=== PATIENT | female | born 1950 | race Caucasian/White ===

== ENCOUNTER 2017-07-29 17:14 | Inpatient (IN) | payer MEDICARE ==
[2017-07-29] MEDS ORDERED: SODIUM CHLORIDE 0.9% 1,000 ML IV STA (17:25)
--- NOTE | 2017-07-29 17:30 | ED ---
Fall HPI - General Chief Complaint: Fall Stated Complaint: fall, hip pain Time Seen by Provider: 07/29/17 17:16 Source: patient, EMS, RN notes reviewed, old records reviewed Mode of arrival: EMS - History of Present Illness Initial Comments: 67-year-old female presents to the emergency department today chief complaint of left hip pain after a fall. She fell on her face and while bending over to pick something up. Patient reports that she is unable to extend her left leg. She denies any other injury related to the fall. No head or neck injury. Patient states that she did previously break her right humerus last year and had surgery. She cannot remember the orthopedic at this time. Has a history of CVA, with some residual weakness, liver disease. Patient has history of hypertension and high cholesterol. - Related Data Home Medications Medication Instructions Recorded Confirmed Atorvastatin [Lipitor] 10 mg PO HS 11/19/14 11/22/14 Fish Oil/Dha/Epa [Fish Oil 1,200 1 each PO DAILY 11/19/14 11/22/14 mg Fish Oil] HYDROcodone/APAP 7.5-325MG [[place] 1 each PO Q6HR PRN 11/19/14 11/22/14 7.5-325] Lisinopril [Prinivil] 20 mg PO BID 11/19/14 11/22/14 Multivitamins, Thera [Multivitamin] 1 tab PO DAILY 11/19/14 11/22/14 Pantoprazole Sodium [Protonix] 40 mg PO DAILY 11/19/14 11/22/14 Potassium Chloride [Klor-Con 10] 10 meq PO DAILY 11/19/14 11/22/14 cloNIDine HCL [Catapres] 0.1 mg PO HS 11/19/14 11/22/14 Allergies Allergy/AdvReac Type Severity Reaction Status Date / Time No Known Allergies Allergy Verified 11/22/14 07:08 Review of Systems ROS Statement: Those systems with pertinent positive or pertinent negative responses have been documented in the HPI. ROS Other: All systems not noted in ROS Statement are negative. Past Medical History Past Medical History: CVA/TIA, Liver Disease History of Any Multi-Drug Resistant Organisms: None Reported Additional Past Surgical History / Comment(s): COLONOSCOPY, EGD Past Anesthesia/Blood Transfusion Reactions: No Reported Reaction Past Psychological History: No Psychological Hx Reported Smoking Status: Current every day smoker Past Alcohol Use History: Occasional Past Drug Use History: None Reported - Past Family History Mother Family Medical History: No Reported History General Exam - General Exam Comments Initial Comments: 67-year-old female, appears in acute pain. She is a frail-appearing 67-year- old female. Limitations: no limitations General appearance: alert, in no apparent distress Head exam: Present: atraumatic, normocephalic, normal inspection Eye exam: Present: normal appearance, PERRL, EOMI. Absent: scleral icterus, conjunctival injection, periorbital swelling ENT exam: Present: normal exam, mucous membranes moist Neck exam: Present: normal inspection. Absent: tenderness, meningismus, lymphadenopathy Respiratory exam: Present: normal lung sounds bilaterally. Absent: respiratory distress, wheezes, rales, rhonchi, stridor Cardiovascular Exam: Present: regular rate, normal rhythm, normal heart sounds. Absent: systolic murmur, diastolic murmur, rubs, gallop, clicks Extremities exam: Present: full ROM, normal capillary refill. Absent: normal inspection, tenderness, pedal edema, joint swelling, calf tenderness Left Hip exam: Present: tenderness. Absent: normal inspection (Patient is holding her leg in a flexed position. She is not able to extend her leg. She reports pain over the left hip and upper thigh.), full ROM, swelling, abrasion Knee exam: Present: normal inspection, full ROM Ankle exam: Present: normal inspection, full ROM Foot/Toe exam: Present: normal inspection, full ROM Neurovascular tendon exam: Present: no vascular compromise Back exam: Present: normal inspection Neurological exam: Present: alert, oriented X3, CN II-XII intact Psychiatric exam: Present: normal affect, normal mood Skin exam: Present: warm, dry, intact, normal color. Absent: rash Course Vital Signs 07/29/17 17:16 Temperature 98.9 F Pulse Rate 84 Respiratory 20 Rate Blood Pressure 166/75 O2 Sat by Pulse 99 Oximetry - Reevaluation(s) Reevaluation #1: 07/29/17 18:05 Discussed case with RASHMI Veloz for Dr. Chen. Medical Decision Making - Medical Decision Making 67-year-old female with a history of hypertension and previous CVA presents after a fall. Has a left hip fracture. No other injuries related to her fall. She is neurovascularly intact, patient is holding her leg in a flex position. Discussed case with RASHMI Veloz whom accepts admission for . I discussed case with Dr. Mitchell for surgery clearance in the morning. Patient's family informed of all the results. Patient will be admitted at this time. Patient will be nothing by mouth after midnight. - Lab Data Result diagrams: 07/29/17 17:41 Lab Results 07/29/17 Range/Units 17:41 WBC 11.9 H (3.8-10.6) k/uL RBC 4.35 (3.80-5.40) m/uL Hgb 12.6 (11.4-16.0) gm/dL Hct 39.2 (34.0-46.0) % MCV 90.1 (80.0-100.0) fL MCH 29.0 (25.0-35.0) pg MCHC 32.2 (31.0-37.0) g/dL RDW 13.7 (11.5-15.5) % Plt Count 271 (150-450) k/uL Neutrophils % 74 % Lymphocytes % 19 % Monocytes % 5 % Eosinophils % 1 % Basophils % 0 % Neutrophils # 8.8 H (1.3-7.7) k/uL Lymphocytes # 2.2 (1.0-4.8) k/uL Monocytes # 0.5 (0-1.0) k/uL Eosinophils # 0.1 (0-0.7) k/uL Basophils # 0.0 (0-0.2) k/uL 07/29/17 18:37 EKG performed at 1824 shows sinus rhythm, low voltage QRS. Borderline EKG. Ventricular rate 93 bpm. NM interval is 168. QRS duration is 58 ms. QT QTc is 386/479 ms. No evidence of ST elevation or T-wave inversion. - Radiology Data Radiology results: report reviewed Acute comminuted enterococcus trochanteric fracture of the left femur. Chest x- ray is negative for any acute cardiopulmonary disease. Normal heart. No significant change. Disposition Clinical Impression: Closed left hip fracture Disposition: ADMITTED IP TO THIS HOSP Condition: Good Is patient prescribed a controlled substance at d/c from ED?: No Referrals: Tony Whitten DO [Primary Care Provider] - 1-2 days Time of Disposition: 18:41
[2017-07-29] MEDS: SODIUM CHLORIDE 0.9% 1,000 ML IV STA ×2 (17:31→20:17)
[2017-07-29] MEDS ORDERED: MORPHINE SULFATE 2 MG/ML SYRINGE IVP STA ×2 (17:31→18:32)
[2017-07-29 18:22] LABS: Basophils % (A) 0 %; Eosinophils # (A) 0.1 k/uL (0-0.7); Eosinophils % (A) 1 %; HCT 39.2 % (34.0-46.0); HGB 12.6 gm/dL (11.4-16.0); Lymphocytes # (A) 2.2 k/uL (1.0-4.8); Lymphocytes % (A) 19 %; MCHC 32.2 g/dL (31.0-37.0); MCV 90.1 fL (80.0-100.0); Mean Platelet Volume 7.5; Monocytes # (A) 0.5 k/uL (0-1.0); Monocytes % (A) 5 %; Neutrophils # (A) 8.8 k/uL (1.3-7.7); Neutrophils % (A) 74 %; Platelet Count 271 k/uL (150-450); RBC 4.35 m/uL (3.80-5.40); RDW 13.7 % (11.5-15.5); WBC 11.9 k/uL (3.8-10.6)
--- NOTE | 2017-07-29 18:28 | XR ---
EXAMINATION TYPE: XR Hip LT and AP Pelvis DATE OF EXAM: 07/29/2017 COMPARISON: NONE HISTORY: Hip pain after a fall TECHNIQUE: 3 views including pelvis and 2 views of the left hip FINDINGS: There is comminuted slightly impacted intertrochanteric fracture of the left femur. Pelvic ring is in tact. Proximal right femur is intact. Sacroiliac joints appear normal. IMPRESSION: Acute comminuted intertrochanteric fracture left femur.
--- NOTE | 2017-07-29 18:29 | XR ---
EXAMINATION TYPE: XR chest 1V DATE OF EXAM: 07/29/2017 COMPARISON: 02/24/2013 HISTORY: Chest pain TECHNIQUE: Single frontal view of the chest is obtained. FINDINGS: Supine view of the chest shows no heart failure nor confluent pneumonic infiltrate. There is right shoulder prosthesis. Thoracic aorta is atheromatous. There is no pleural effusion. IMPRESSION: No active cardiopulmonary disease. Normal heart. No significant change.
[2017-07-29 18:32] LABS: Albumin 4.4 g/dL (3.5-5.0); Calcium 9.4 mg/dL (8.4-10.2); Potassium 4.2 mmol/L (3.5-5.1); Total Bilirubin 0.3 mg/dL (0.2-1.3); Total Protein 6.7 g/dL (6.3-8.2)
[2017-07-29 18:38] LABS: INR 1.1 (<1.2); Partial Thromboplastin Time 21.4 sec (22.0-30.0); Prothrombin Time 10.4 sec (9.0-12.0)
[2017-07-29] MEDS ORDERED: traMADol 50 MG TAB PO PRN (18:41)
[2017-07-29] MEDS ORDERED: NALOXONE 0.4 MG/ML 1 ML VIAL IV PRN (18:41)
[2017-07-29] MEDS ORDERED: DOCUSATE 100 MG CAP PO PRN (18:41)
[2017-07-29] MEDS ORDERED: ACETAMINOPHEN TAB 325 MG TAB PO PRN (18:41)
[2017-07-29] MEDS ORDERED: TEMAZEPAM 15 MG CAP PO PRN (18:41)
[2017-07-29] MEDS ORDERED: ONDANSETRON 4 MG/2 ML VIAL IVP PRN (18:41)
[2017-07-29] MEDS ORDERED: HYDROmorphone 0.5 MG/0.5 ML SYRINGE IVP STA (18:56)
[2017-07-29 19:58] VITALS: BMI 19.5
[2017-07-29] MEDS: SODIUM CHLORIDE 0.9% 1,000 ML IV SCH (20:18)
[2017-07-29] MEDS: ATORVASTATIN 10 MG TAB PO SCH (21:22)
[2017-07-29] MEDS: FAMOTIDINE 20 MG TAB PO SCH (21:22)
[2017-07-29] MEDS: MORPHINE SULFATE 2 MG/ML SYRINGE IV PRN (21:57)
[2017-07-30] MEDS: MORPHINE SULFATE 2 MG/ML SYRINGE IV PRN ×2 (00:59→04:06)
[2017-07-30] MEDS: SODIUM CHLORIDE 0.9% 1,000 ML IV SCH ×3 (04:07→17:57)
[2017-07-30] MEDS: LORazepam 2 MG/ML INJ IV PRN ×2 (05:22→11:07)
--- NOTE | 2017-07-30 12:37 | P.CNOR ---
History of Present Illness - [facility] Consult date: 07/30/17 Consult reason: fracture History of present illness: This is a 67-year-old patient who presented to [facility] yesterday afternoon after a fall at home. After the fall, patient had immediate pain involving the left hip, she was unable to weight-bear. EMS to bring the patient to the hospital. Upon arrival to the hospital, imaging and lab tests were done. Images demonstrated a subtrochanteric left hip fracture. I was contacted by the emergency room staff, the case was discussed. Patient was then admitted under internal medicine, our orthopedic team was then consulted. Patient was evaluated to they have bedside, she was resting comfortably. She notes any type of movement does reproduce pain in the left hip region. She denies any right lower extremity pain, bilateral upper extremity pain. She denies any new onset cervical, thoracic or lumbar pain. Review of Systems Constitutional: Reports as per [facility] Past Medical History Past Medical History: CVA/TIA History of Any Multi-Drug Resistant Organisms: None Reported Additional Past Surgical History / Comment(s): COLONOSCOPY, EGD Past Anesthesia/Blood Transfusion Reactions: No Reported Reaction Past Psychological History: No Psychological Hx Reported Smoking Status: Current every day smoker Past Alcohol Use History: Occasional Past Drug Use History: None Reported - Past Family History Mother Family Medical History: Congestive Heart Failure (CHF) Medications and Allergies Home Medications Medication Instructions Recorded Confirmed Type Atorvastatin [Lipitor] 10 mg PO HS 11/19/14 07/29/17 History Fish Oil/Dha/Epa [Fish Oil 1,200 1 cap PO DAILY 11/19/14 07/29/17 History mg Fish Oil] Lisinopril [Prinivil] 20 mg PO BID 11/19/14 07/29/17 History Multivitamins, Thera [Multivitamin] 1 tab PO DAILY 11/19/14 07/29/17 History Pantoprazole Sodium [Protonix] 40 mg PO DAILY 11/19/14 07/29/17 History Potassium Chloride [Klor-Con 10] 10 meq PO DAILY 11/19/14 07/29/17 History cloNIDine HCL [Catapres] 0.1 mg PO HS 11/19/14 07/29/17 History Aspirin EC [Ecotrin Low Dose] 81 mg PO DAILY 07/29/17 07/29/17 History Cholecalciferol [Vitamin D3] 1,000 unit PO DAILY 07/29/17 07/29/17 History Ferrous Sulfate [Feosol] 325 mg PO DAILY 07/29/17 07/29/17 History HYDROcodone/APAP 10-325MG [[place] 1 tab PO Q6HR PRN 07/29/17 07/29/17 History 10-325] Allergies Allergy/AdvReac Type Severity Reaction Status Date / Time No Known Allergies Allergy Verified 07/29/17 19:13 Physical Examination Left lower extremity: No obvious open lesions or sores visualized, no significant areas of erythema or soft tissue swelling Patient's knee is flexed to about 90, the hip is externally rotated at this time, this is the most comfortable position She is tender with palpation along the proximal femur and intertrochanteric region Logroll maneuver reproduces significant discomfort She is unable to straight leg raise at this time Calf is soft, no tenderness with palpation Plantar flexion, dorsiflexion, EHL, FHL are intact Sensory exam to light touch throughout extremities intact, dorsal pedis pulse is 2+ Results - Labs Labs: Abnormal Lab Results - Last 24 Hours (Table) 07/29/17 07/29/17 07/29/17 Range/Units 17:41 17:41 17:41 WBC 11.9 H (3.8-10.6) k/uL Neutrophils # 8.8 H (1.3-7.7) k/uL APTT 21.4 L (22.0-30.0) sec Glucose 107 H (74-99) mg/dL H & H 07/29/17 Range/Units 17:41 Hgb 12.6 (11.4-16.0) gm/dL Hct 39.2 (34.0-46.0) % Coagulation 07/29/17 Range/Units 17:41 INR 1.1 (<1.2) Result Diagrams: 07/29/17 17:41 07/29/17 17:41 - Diagnostic results Hip x-ray: report reviewed, image reviewed Assessment and Plan Plan: Imaging: Multiple views of left hip were obtained. Images demonstrate displaced left subtrochanteric fracture. No other osseous abnormalities visualized Assessment: Displaced left subtrochanteric hip fracture status post fall from standing Plan: I was able to discuss the case, including both physical exam findings and imaging studies might any Dr. Chen. Would like to proceed with surgery, more specifically a closed reduction with insertion of an intratrochanteric nail of the left femur. Plan is to proceed with this on 07/30/2017. Risks and benefits of the procedure discussed the patient, she is in good understanding would like to proceed. She was notified that Dr. Chen would be available the perioperative period answering any further questions. Obtain consent Nothing by mouth Nonweightbearing left lower extremity Pain control Further recommendations to follow after surgery Time with Patient: Less than 30
--- NOTE | 2017-07-30 12:38 | P.CONS ---
History of Present Illness - Reason for Consult Preoperative clearance - History of Present Illness 67-year-old pleasant female without any significant past medical history except for cerebrovascular accident in the past does not have any significant residual weakness not a very good historian came in after a mechanical fall and fracture of the left hip. Patient is going for surgery today EKG is essentially within normal limits patient is not dependent in ADLs but use a walker at home able to ambulate well at home. Patient denied any active chest pain. Patient doesn't have a carotid bruit. Denied any fever chills dysuria nausea vomiting. Review of Systems REVIEW OF SYSTEMS: CONSTITUTIONAL: No fever, no malaise, no fatigue. HEENT: No recent visual problems or hearing problems. Denied any sore throat. CARDIOVASCULAR: No chest pain, orthopnea, PND, no palpitations, no syncope. PULMONARY: No shortness of breath, no cough, no hemoptysis. GASTROINTESTINAL: No diarrhea, no nausea, no vomiting, no abdominal pain. Normoactive bowel sounds. NEUROLOGICAL: No headaches, no weakness, no numbness. HEMATOLOGICAL: Denies any bleeding or petechiae. GENITOURINARY: Denies any burning micturition, frequency, or urgency. MUSCULOSKELETAL/RHEUMATOLOGICAL: Complaining of pain in the left hip ENDOCRINE: Denies any polyuria or polydipsia. The rest of the 14-point review of systems is negative. Past Medical History Past Medical History: CVA/TIA History of Any Multi-Drug Resistant Organisms: None Reported Additional Past Surgical History / Comment(s): COLONOSCOPY, EGD Past Anesthesia/Blood Transfusion Reactions: No Reported Reaction Past Psychological History: No Psychological Hx Reported Smoking Status: Current every day smoker Past Alcohol Use History: Occasional Past Drug Use History: None Reported - Past Family History Mother Family Medical History: Congestive Heart Failure (CHF) Medications and Allergies Home Medications Medication Instructions Recorded Confirmed Type Atorvastatin [Lipitor] 10 mg PO HS 11/19/14 07/29/17 History Fish Oil/Dha/Epa [Fish Oil 1,200 1 cap PO DAILY 11/19/14 07/29/17 History mg Fish Oil] Lisinopril [Prinivil] 20 mg PO BID 11/19/14 07/29/17 History Multivitamins, Thera [Multivitamin] 1 tab PO DAILY 11/19/14 07/29/17 History Pantoprazole Sodium [Protonix] 40 mg PO DAILY 11/19/14 07/29/17 History Potassium Chloride [Klor-Con 10] 10 meq PO DAILY 11/19/14 07/29/17 History cloNIDine HCL [Catapres] 0.1 mg PO HS 11/19/14 07/29/17 History Aspirin EC [Ecotrin Low Dose] 81 mg PO DAILY 07/29/17 07/29/17 History Cholecalciferol [Vitamin D3] 1,000 unit PO DAILY 07/29/17 07/29/17 History Ferrous Sulfate [Feosol] 325 mg PO DAILY 07/29/17 07/29/17 History HYDROcodone/APAP 10-325MG [[place] 1 tab PO Q6HR PRN 07/29/17 07/29/17 History 10-325] Allergies Allergy/AdvReac Type Severity Reaction Status Date / Time No Known Allergies Allergy Verified 07/29/17 19:13 Physical Exam Vitals: Vital Signs Temp Pulse Pulse Resp BP BP Pulse Ox 07/30/17 09:21 97.9 F 99 15 174/83 95 07/30/17 07:00 97.9 F 99 15 174/83 95 07/30/17 00:40 98.6 F 93 15 144/77 96 07/29/17 20:25 97.9 F 18 160/77 94 L 07/29/17 18:43 87 18 165/76 100 07/29/17 17:16 98.9 F 84 20 166/75 99 Intake and Output 07/29/17 07/30/17 07/30/17 22:59 06:59 14:59 Intake Total 300 800 Output Total 600 Balance 300 200 Intake: Intake, IV Titration 300 800 Amount Sodium Chloride 0.9% 1, 300 800 000 ml @ 100 mls/hr IV . Q10H [facility] Rx#:[id number] Output: Urine 600 Other: Voiding Method Indwelling Catheter Indwelling Catheter Indwelling Catheter Weight 45.359 kg PHYSICAL EXAMINATION: GENERAL: The patient is alert and oriented x3, not in any acute distress. Well developed, well nourished. HEENT: Pupils are round and equally reacting to light. EOMI. No scleral icterus. No conjunctival pallor. Normocephalic, atraumatic. No pharyngeal erythema. No thyromegaly. CARDIOVASCULAR: S1 and S2 present. No murmurs, rubs, or gallops. PULMONARY: Chest is clear to auscultation, no wheezing or crackles. ABDOMEN: Soft, nontender, nondistended, normoactive bowel sounds. No palpable organomegaly. MUSCULOSKELETAL: Deferred to orthopedic surgery EXTREMITIES: No cyanosis, clubbing, or pedal edema. NEUROLOGICAL: Gross neurological examination did not reveal any focal deficits. SKIN: No rashes. Results CBC & Chem 7: 07/29/17 17:41 18 17:41 Labs: Abnormal Lab Results - Last 24 Hours (Table) 07/29/17 07/29/17 07/29/17 Range/Units 17:41 17:41 17:41 WBC 11.9 H (3.8-10.6) k/uL Neutrophils # 8.8 H (1.3-7.7) k/uL APTT 21.4 L (22.0-30.0) sec Glucose 107 H (74-99) mg/dL Assessment and Plan Plan: -Preoperative clearance: Considering patient's smoking history and vascular disease patient will be low to intermediate risk for surgery same thing was expanded to the patient. Patient doesn't have any active chest pain. I'll order an echocardiogram and carotid Doppler. Since her cardiac exam is within normal limits and there is no carotid bruit I believe patient does need to wait for these tests to be done, patient can go in and get the surgery done. Risk and benefits were discussed with the patient and patient is agreeable for surgery. -Leukocytosis secondary to fracture reactive in nature without any signs or symptoms of infection -Hypertension hold off and him and his medications for today because I expect postoperative hypotension and patient will be reinitiated on antidepressant medications the current depending on her blood pressures. -History of cerebral vascular accident in the past without any significant residual weakness -Active smoking history: Counseling was provided -Left hip fracture pain management and DVT prophylaxis as per primary service
--- NOTE | 2017-07-30 12:50 | US ---
EXAMINATION TYPE: US carotid duplex BILAT DATE OF EXAM: 07/30/2017 COMPARISON: US 02/24/2013 CLINICAL HISTORY: CVA in the past. EXAM MEASUREMENTS: RIGHT: Peak Systolic Velocity (PSV) cm/sec ----- Right CCA: 81.3 ----- Right ICA: 114.7 ----- Right ECA: 82.7 ICA/CCA ratio: 1.4 RIGHT: End Diastole cm/sec ----- Right CCA: 14.4 ----- Right ICA: 28.9 ----- Right ECA: 11.5 LEFT: Peak Systolic Velocity (PSV) cm/sec ----- Left CCA: 75.8 ----- Left ICA: 70.9 ----- Left ECA: 69.3 ICA/CCA ratio: 0.9 LEFT: End Diastole cm/sec ----- Left CCA: 11.1 ----- Left ICA: 16.0 ----- Left ECA: 14.4 VERTEBRALS (direction of flow): Right Vertebral: Antegrade Left Vertebral: Antegrade Rhythm: Normal Mild/moderate amount of plaque visualized bilaterally. No elevated velocities, no significant stenosi s. IMPRESSION: Mild to moderate degree of grayscale atheromatous plaquing with no sonographically evide nt hemodynamically significant stenosis within either visualized carotid arterial system.
[2017-07-30] MEDS ORDERED: IV FLUID CONTINUATION 1,000 ML IV ONE (13:07)
[2017-07-30] MEDS ORDERED: PROPOFOL 10 MG/ML 20 ML VIAL IV ONE (13:48)
[2017-07-30] MEDS ORDERED: MIDAZOLAM 2 MG/2 ML VIAL ONE (13:48)
[2017-07-30] MEDS ORDERED: fentaNYL (PF) 50 MCG/ML 2 ML AMP ONE (13:48)
[2017-07-30] MEDS ORDERED: PHENYLEPHRINE-0.9% NACL SYG 1 MG/10 ML SYRINGE ONE (13:48)
[2017-07-30] MEDS ORDERED: KETAMINE 10 MG/ML 20 ML VIAL ONE (13:48)
[2017-07-30] MEDS ORDERED: SODIUM CHLORIDE 0.9% 50 ML with ceFAZolin 1,000 MG IV ONE ×2 (14:23)
[2017-07-30] MEDS ORDERED: LACTATED RINGERS 1,000 ML IV ONE (14:45)
[2017-07-30] MEDS ORDERED: MORPHINE SULFATE 2 MG/ML SYRINGE IV PRN ×3 (15:25)
[2017-07-30] MEDS ORDERED: MAGNESIUM HYDROXIDE 2,400 MG/10 ML CUP PO PRN (15:25)
[2017-07-30] MEDS ORDERED: HYDROcodone/APAP 10-325MG 1 EACH TAB PO PRN (15:28)
[2017-07-30] MEDS ORDERED: NALOXONE 0.4 MG/ML 1 ML VIAL IV PRN (15:30)
[2017-07-30] MEDS ORDERED: ONDANSETRON 4 MG/2 ML VIAL IVP PRN (15:30)
[2017-07-30] MEDS ORDERED: HYDROmorphone 0.5 MG/0.5 ML SYRINGE IVP PRN ×3 (15:30)
[2017-07-30] MEDS ORDERED: HYDROcodone/APAP 5-325MG 1 EACH TAB PO PRN (15:30)
--- NOTE | 2017-07-30 15:30 | P.OP ---
Date of Procedure: 07/30/17 Preoperative Diagnosis: Left hip subtrochanteric fracture Postoperative Diagnosis: Left hip subtrochanteric fracture Procedure(s) Performed: Trochanteric nailing left hip subtrochanteric fracture Implants: 1. Synthes 10 mm x 23 5 mm trochanteric nail 2. Synthes 11 mm x 85 mm helical blade 3. Synthes 26 mm 5.0 locking screw Anesthesia: spinal Surgeon: Taran Chen Reeling Machine Setup Operator #1: Kaushal Holland Estimated Blood Loss (ml): 30 Pathology: none sent Condition: stable Disposition: PACU Indications for Procedure: 67-year-old lady seen with a comminuted displaced left hip subtrochanteric fracture. I recommended trochanteric nailing. The procedure, risks, complications and recovery were discussed. Patient was agreeable and consent was obtained. Operative Findings: See description of procedure Description of Procedure: Patient was taken to the operative suite. Patient underwent a spinal anesthetic by the department of anesthesia. Patient was transferred to the fracture table. The right lower extremity placed in a well-padded leg vigil and left lower extremity was placed in well-padded traction. We brought the fluoroscopy into the operative field and with internal rotation and adduction as as well as longitudinal traction the fracture was reduced and a satisfactory position. The C-arm was pulled back. The left. Was prepped and draped in normal sterile orthopedic fashion. The patient had received preoperative IV antibiotics. I now made about a 4 cm incision proximal and distal to the greater trochanter. Dissection was taken down to the tibial trochanter. A guidewire was inserted. This was confirmed under AP and lateral intraoperative imaging to be satisfactory aligned. We now used a preliminary proximal drill. We now introduced a guidewire. We chose the appropriate size implant after templating fluoroscopically. We then introduced our trochanteric nail fitting very nicely distally giving good purchase. We pushed down to an appropriate position for our helical screw. An incision was made for our helical screw insertion. Our guide was now taken down to the lateral proximal femur. A guidewire was placed into the head neck complex. This was confirmed be adequately positioned on AP and lateral intraoperative imaging. An appropriate size helical screw was now chosen and inserted with good bite and purchase into the femoral head. We now locked or helical screw in place. This was confirmed be adequately aligned intraoperatively via fluoroscopy. We now made a small kiki 4 distal locking screw. It was drilled and appropriate length screws inserted with good bite and purchase noted. The entire construct was visualized under AP and lateral intraoperative imaging. With good alignment of the fracture and internal fixation. Spot films were obtained to document that. The wound was irrigated with saline solution. The IT band proximally was repaired with #1 Vicryl. The subcu soft tissues repaired with 2-0 Vicryl. Skin luis were utilized to repair all skin margins. Sterile dressings were applied. The patient was awakened and transferred to recovery stable condition. Kiki CARABALLO assisted procedure.
--- NOTE | 2017-07-30 15:31 | FL ---
EXAMINATION TYPE: FL guidance operating room, XR Hip Limited LT DATE OF EXAM: 07/30/2017 CLINICAL HISTORY: Left hip fracture fixation. TECHNIQUE: Fluoroscopy. COMPARISON: None. FINDINGS/IMPRESSION: Fluoroscopic guidance was provided during procedure performed by Dr. Chen. A total of 1 minute and 19 seconds of fluoroscopic time was utilized during the procedure and 3 spo t images was acquired during a left hip fracture fixation.
[2017-07-30 16:55] LABS: Basophils % (A) 0 %; Eosinophils # (A) 0.2 k/uL (0-0.7); Eosinophils % (A) 1 %; HCT 32.7 % (34.0-46.0); HGB 10.6 gm/dL (11.4-16.0); Lymphocytes # (A) 1.6 k/uL (1.0-4.8); Lymphocytes % (A) 9 %; MCH 29.8 pg (25.0-35.0); MCHC 32.5 g/dL (31.0-37.0); MCV 91.8 fL (80.0-100.0); Mean Platelet Volume 7.1; Monocytes # (A) 0.8 k/uL (0-1.0); Monocytes % (A) 5 %; Neutrophils # (A) 15.2 k/uL (1.3-7.7); Neutrophils % (A) 85 %; Platelet Count 224 k/uL (150-450); RBC 3.56 m/uL (3.80-5.40); RDW 13.9 % (11.5-15.5)
[2017-07-30] MEDS: PANTOPRAZOLE 40 MG TABLET PO SCH (17:45)
[2017-07-30] MEDS: ASPIRIN 81 MG PO SCH (17:45)
--- NOTE | 2017-07-30 18:20 | ECHOF ---
Referral Reason:Pre-Op MEASUREMENTS -------- HEIGHT: 152.4 cm WEIGHT: 45.4 kg BP: 174/83 IVSd: 1.0 cm (0.6 - 1.1) LVIDd: 3.0 cm (3.9 - 5.3) LVPWd: 0.9 cm (0.6 - 1.1) IVSs: 1.1 cm LVIDs: 1.8 cm LVPWs: 1.1 cm LAESV Index (A-L): 11.42 ml/m Ao Diam: 2.9 cm (2.0 - 3.7) AV Cusp: 1.6 cm (1.5 - 2.6) LA Diam: 2.0 cm (2.7 - 3.8) MV E Bipin: 0.70 m/s MV DecT: 399 ms MV A Bipin: 1.46 m/s MV E/A Ratio: 0.48 RAP: 5.00 mmHg RVSP: 13.21 mmHg FINDINGS -------- Resting tachycardia (HR>100bpm). This was a technically adequate study. The left ventricular size is normal. Left ventricular wall thickness is normal. Overall left vent ricular systolic function is normal with, an EF between 55 - 60 %. The right ventricle is normal in size and function. Normal LA size by volume 22+/-6 ml/m2. The right atrium is normal in size. There is mild aortic valve sclerosis. There is no evidence of aortic regurgitation. There is no e vidence of aortic stenosis. The mitral valve leaflets are mildly thickened. There is trace to mild mitral regurgitation. Trace tricuspid regurgitation present. Right ventricular systolic pressure is normal at < 35 mmHg. There is no evidence of pulmonary hypertension. The pulmonic valve was not well visualized. The aortic root size is normal. Normal inferior vena cava with normal inspiratory collapse consistent with estimated right atrial pre ssure of 5 mmHg. There is no pericardial effusion. CONCLUSIONS -------- 1. Resting tachycardia (HR>100bpm). 2. This was a technically adequate study. 3. The left ventricular size is normal. 4. Left ventricular wall thickness is normal. 5. Overall left ventricular systolic function is normal with, an EF between 55 - 60 %. 6. Normal LA size by volume 22+/-6 ml/m2. 7. There is mild aortic valve sclerosis. 8. The mitral valve leaflets are mildly thickened. 9. There is trace to mild mitral regurgitation. 10. Trace tricuspid regurgitation present. 11. Right ventricular systolic pressure is normal at < 35 mmHg. 12. There is no evidence of pulmonary hypertension. 13. The aortic root size is normal. 14. There is no pericardial effusion. COMPUTER TESTER: Ok Garcia RDCS
[2017-07-30] MEDS: HYDROcodone/APAP 5-325MG 1 EACH TAB PO PRN (19:27)
[2017-07-30] MEDS: hydrOXYzine PAMOATE 25 MG CAP PO PRN (19:27)
[2017-07-30] MEDS: ATORVASTATIN 10 MG TAB PO SCH (19:47)
[2017-07-30] MEDS: SENNOSIDES-DOCUSATE SODIUM 1 EACH TAB PO SCH (19:47)
[2017-07-30] MEDS ORDERED: SENNOSIDES-DOCUSATE SODIUM 1 EACH TAB PO SCH (21:00)
[2017-07-30] MEDS: ceFAZolin IN SWFI 2 GM/20 ML SYRINGE IVP SCH (23:11)
[2017-07-31] MEDS ORDERED: ceFAZolin 1,000 MG in DEXTROSE/WATER 1 50ML.BAG IVPB SCH (00:01)
[2017-07-31] MEDS: hydrOXYzine PAMOATE 25 MG CAP PO PRN (03:07)
[2017-07-31] MEDS: HYDROcodone/APAP 5-325MG 1 EACH TAB PO PRN ×2 (03:07→08:00)
[2017-07-31] MEDS: SODIUM CHLORIDE 0.9% 1,000 ML IV SCH ×5 (03:48→21:02)
[2017-07-31] MEDS: FAMOTIDINE 20 MG TAB PO SCH (07:21)
[2017-07-31] MEDS: ASPIRIN 81 MG PO SCH (07:59)
[2017-07-31] MEDS: PANTOPRAZOLE 40 MG TABLET PO SCH (08:00)
[2017-07-31] MEDS: ceFAZolin IN SWFI 2 GM/20 ML SYRINGE IVP SCH (08:01)
[2017-07-31] MEDS: ENOXAPARIN 30 MG/0.3 ML SYRINGE SQ SCH (08:04)
[2017-07-31] MEDS ORDERED: LISINOPRIL 20 MG TAB PO SCH (09:00)
--- NOTE | 2017-07-31 10:00 | P.PN ---
Subjective Progress Note Date: 07/31/17 Principal diagnosis: Status post closed reduction insertion IT nail for subtrochanteric fracture Patient seen today resting in her hospital bed, she appears comfortable. She did have some increasing pain through the night. She denies any chest pain or shortness of breath. Objective - Vital Signs Vital signs: Vital Signs Temp 98.6 F 07/31/17 07:55 Pulse 106 H 07/31/17 07:55 Resp 14 07/31/17 07:55 BP 103/68 07/31/17 07:55 Pulse Ox 97 07/31/17 07:55 Intake & Output 07/30/17 07/31/17 07/31/17 18:59 06:59 18:59 Intake Total 950 1120 Output Total 330 1000 Balance 620 120 Intake: IV 950 Intake, IV Titration 1120 Amount Sodium Chloride 0.9% 1, 1120 000 ml @ 70 mls/hr IV . [id number] [facility] Rx#:[id number] Output: Urine 300 1000 Estimated Blood Loss 30 Other: Voiding Method Indwelling Catheter Indwelling Catheter - Exam Left lower extremity: Incision is clean, dry, and intact. Beatris are in good position. There is minimal soft tissue swelling and ecchymosis surrounding the medial and lateral aspects of the incision. Calf is soft, no tenderness with palpation. Plantar flexion, dorsiflexion, EHL, FHL are intact. Sensory exam to light touch throughout the extremity is intact, dorsal pedis pulses 2+. - Labs CBC & Chem 7: 07/30/17 16:36 07/29/17 17:41 Labs: Abnormal Lab Results - Last 24 Hours (Table) 07/30/17 Range/Units 16:36 WBC 18.0 H (3.8-10.6) k/uL RBC 3.56 L (3.80-5.40) m/uL Hgb 10.6 L (11.4-16.0) gm/dL Hct 32.7 L (34.0-46.0) % Neutrophils # 15.2 H (1.3-7.7) k/uL Assessment and Plan Plan: Assessment: 1. Postop day #1 status post closed reduction and insertion IM nail left subtrochanteric hip fracture Plan: Pain control, will increase her on oral medication Nonweightbearing left lower extremity GI and DVT prophylaxis, continue subcu medication Daily dressing changes/ice and the hip region Recommendations Patient will likely be discharged to rehab next few days Time with Patient: Less than 30
[2017-07-31] MEDS ORDERED: HYDROcodone/APAP 10-325MG 1 EACH TAB PO PRN (10:01)
[2017-07-31] MEDS ORDERED: KETOROLAC 30 MG/ML 1 ML VIAL IVP PRN (14:49)
--- NOTE | 2017-07-31 16:26 | P.PN ---
Subjective Patient was admitted after a left hip fracture underwent the trochanteric nailing. Trochanteric fracture. Patient is comparing of severe pain because of which patient is bit tachycardic patient is bit hypotensive at this can urine as amlodipine cut down her lisinopril. I'll discontinue her lisinopril as she does have perioperative hypotension which is next acute outcome post surgery. Carotid Doppler and the echocardiogram are essentially within normal limits. Constitutional: Denied any fatigue denied any fever. Cardio vascular: denied any chest pain, palpitations Gastrointestinal denied any nausea vomiting Pulmonary: Denied any shortness of breath cough Neurologic denied any new focal deficits Objective - Vital Signs Vital signs: Vital Signs Temp 98.8 F 07/31/17 14:34 Pulse 101 H 07/31/17 14:34 Resp 16 07/31/17 14:34 BP 108/67 07/31/17 14:34 Pulse Ox 98 07/31/17 14:34 Intake & Output 07/30/17 07/31/17 07/31/17 18:59 06:59 18:59 Intake Total 950 1120 200 Output Total 330 1000 Balance 620 120 200 Intake: IV 950 Intake, IV Titration 1120 Amount Sodium Chloride 0.9% 1, 1120 000 ml @ 70 mls/hr IV . [id number] [facility] Rx#:[id number] Oral 200 Output: Urine 300 1000 Estimated Blood Loss 30 Other: Voiding Method Indwelling Catheter Indwelling Catheter Indwelling Catheter - Exam PHYSICAL EXAMINATION: GENERAL: The patient is alert and oriented x3, not in any acute distress. Well developed, well nourished. HEENT: Pupils are round and equally reacting to light. EOMI. No scleral icterus. No conjunctival pallor. Normocephalic, atraumatic. No pharyngeal erythema. No thyromegaly. CARDIOVASCULAR: S1 and S2 present. No murmurs, rubs, or gallops. Patient is bit tachycardic if it to be in sinus rhythm PULMONARY: Chest is clear to auscultation, no wheezing or crackles. ABDOMEN: Soft, nontender, nondistended, normoactive bowel sounds. No palpable organomegaly. MUSCULOSKELETAL: Deferred to orthopedic surgery EXTREMITIES: No cyanosis, clubbing, or pedal edema. NEUROLOGICAL: Gross neurological examination did not reveal any focal deficits. SKIN: No rashes. - Labs CBC & Chem 7: 07/30/17 16:36 07/29/17 17:41 Labs: Abnormal Lab Results - Last 24 Hours (Table) 07/30/17 Range/Units 16:36 WBC 18.0 H (3.8-10.6) k/uL RBC 3.56 L (3.80-5.40) m/uL Hgb 10.6 L (11.4-16.0) gm/dL Hct 32.7 L (34.0-46.0) % Neutrophils # 15.2 H (1.3-7.7) k/uL Assessment and Plan Plan: -Sub trochanteric fracture on the left side, status post nailing of the left hip area -Leukocytosis secondary to fracture reactive in nature without any signs or symptoms of infection -Hypertension hold off all antihypertensives -Tachycardia secondary to pain patient will be started on Toradol and Tylenol for pain, try to avoid opiates. -History of cerebral vascular accident in the past without any significant residual weakness -Active smoking history: Counseling was provided -Left hip fracture pain management and DVT prophylaxis as per primary service
[2017-07-31] MEDS: HYDROcodone/APAP 10-325MG 1 EACH TAB PO PRN (20:57)
[2017-07-31] MEDS: SENNOSIDES-DOCUSATE SODIUM 1 EACH TAB PO SCH (20:57)
[2017-07-31] MEDS: ATORVASTATIN 10 MG TAB PO SCH (20:57)
[2017-07-31] MEDS: LORazepam 2 MG/ML INJ IV PRN (22:37)
[2017-08-01] MEDS: HYDROcodone/APAP 10-325MG 1 EACH TAB PO PRN ×3 (07:14→19:54)
[2017-08-01] MEDS: PANTOPRAZOLE 40 MG TABLET PO SCH (07:14)
[2017-08-01] MEDS: ASPIRIN 81 MG PO SCH (07:14)
[2017-08-01] MEDS: ENOXAPARIN 30 MG/0.3 ML SYRINGE SQ SCH (07:15)
[2017-08-01] MEDS: SODIUM CHLORIDE 0.9% 1,000 ML IV SCH ×3 (08:53→13:58)
[2017-08-01] MEDS ORDERED: POLYETHYLENE GLYCOL 3350 17 GM POWD.PACK PO PRN (11:23)
--- NOTE | 2017-08-01 12:59 | P.PN ---
Subjective Progress Note Date: 08/01/17 Principal diagnosis: Status post closed reduction insertion IT nail for subtrochanteric fracture Patient seen today resting in her hospital bed, she appears comfortable. Pain is better controlled today.. She denies any chest pain or shortness of breath. Objective - Vital Signs Vital signs: Vital Signs Temp 98 F 08/01/17 07:10 Pulse 99 08/01/17 07:10 Resp 14 08/01/17 07:10 BP 129/76 08/01/17 07:10 Pulse Ox 99 08/01/17 07:10 Intake & Output 07/31/17 08/01/17 08/01/17 18:59 06:59 18:59 Intake Total 200 965 240 Output Total 300 150 Balance 200 665 90 Intake: Intake, IV Titration 625 Amount Sodium Chloride 0.9% 1, 625 000 ml @ 70 mls/hr IV . [id number] [facility] Rx#:[id number] Oral 200 340 240 Output: Urine 300 150 Uretheral (Escobar) 150 Other: Voiding Method Indwelling Catheter Indwelling Catheter Indwelling Catheter - Exam Left lower extremity: Incision is clean, dry, and intact. Beatris are in good position. There is minimal soft tissue swelling and ecchymosis surrounding the medial and lateral aspects of the incision. Calf is soft, no tenderness with palpation. Plantar flexion, dorsiflexion, EHL, FHL are intact. Sensory exam to light touch throughout the extremity is intact, dorsal pedis pulses 2+. - Labs CBC & Chem 7: 07/30/17 16:36 07/29/17 17:41 Assessment and Plan Plan: Assessment: 1. Postop day #2 status post closed reduction and insertion IM nail left subtrochanteric hip fracture Plan: Pain control, continue current medication Nonweightbearing left lower extremity GI and DVT prophylaxis, continue subcu medication Daily dressing changes/ice and the hip region Medical recommendations Hopeful discharge to rehab tomorrow Time with Patient: Less than 30
--- NOTE | 2017-08-01 13:06 | P.PN ---
Subjective Patient was admitted after a left hip fracture underwent the trochanteric nailing. Trochanteric fracture. Patient is comparing of severe pain because of which patient is bit tachycardic patient is bit hypotensive at this can urine as amlodipine cut down her lisinopril. I'll discontinue her lisinopril as she does have perioperative hypotension which is next acute outcome post surgery. Carotid Doppler and the echocardiogram are essentially within normal limits. 08/01/2017 Patient's pain is better controlled today. Patient's tachycardia improved blood pressure is better controlled Constitutional: Denied any fatigue denied any fever. Cardio vascular: denied any chest pain, palpitations Gastrointestinal denied any nausea vomiting Pulmonary: Denied any shortness of breath cough Neurologic denied any new focal deficits Objective - Vital Signs Vital signs: Vital Signs Temp 98 F 08/01/17 07:10 Pulse 99 08/01/17 07:10 Resp 14 08/01/17 07:10 BP 129/76 08/01/17 07:10 Pulse Ox 99 08/01/17 07:10 Intake & Output 07/31/17 08/01/17 08/01/17 18:59 06:59 18:59 Intake Total 200 965 240 Output Total 300 150 Balance 200 665 90 Intake: Intake, IV Titration 625 Amount Sodium Chloride 0.9% 1, 625 000 ml @ 70 mls/hr IV . [id number] [facility] Rx#:[id number] Oral 200 340 240 Output: Urine 300 150 Uretheral (Escobar) 150 Other: Voiding Method Indwelling Catheter Indwelling Catheter Indwelling Catheter - Exam PHYSICAL EXAMINATION: GENERAL: The patient is alert and oriented x3, not in any acute distress. Well developed, well nourished. HEENT: Pupils are round and equally reacting to light. EOMI. No scleral icterus. No conjunctival pallor. Normocephalic, atraumatic. No pharyngeal erythema. No thyromegaly. CARDIOVASCULAR: S1 and S2 present. No murmurs, rubs, or gallops. Patient is bit tachycardic if it to be in sinus rhythm PULMONARY: Chest is clear to auscultation, no wheezing or crackles. ABDOMEN: Soft, nontender, nondistended, normoactive bowel sounds. No palpable organomegaly. MUSCULOSKELETAL: Deferred to orthopedic surgery EXTREMITIES: No cyanosis, clubbing, or pedal edema. NEUROLOGICAL: Gross neurological examination did not reveal any focal deficits. SKIN: No rashes. - Labs CBC & Chem 7: 07/30/17 16:36 07/29/17 17:41 Assessment and Plan Plan: -Sub trochanteric fracture on the left side, status post nailing of the left hip area -Leukocytosis secondary to fracture reactive in nature without any signs or symptoms of infection -Hypertension hold off all antihypertensives to prevent perioperative hypotension patient blood pressure improved today -Tachycardia secondary to pain patient will be started on Toradol and Tylenol for pain, try to avoid opiates. Tachycardia improved today with pain control -History of cerebral vascular accident in the past without any significant residual weakness -Active smoking history: Counseling was provided -Left hip fracture pain management and DVT prophylaxis as per primary service
--- NOTE | 2017-08-01 13:08 | P.DS ---
Providers Date of admission: 07/29/17 18:21 Attending physician: Mane Mitchell Consults: 07/29/17 18:41 Consult Physician Stat Consulting Provider: Mane Mitchell Consult Reason/Comments: Medical Clearance, AM hip surgery Do you want consulting provider notified?: Yes 07/30/17 01:04 Consult Physician Routine Consulting Provider: Taran Chen Consult Reason/Comments: hip fracture Do you want consulting provider notified?: Already Contacted [facility] Course: 54-year-old admitted for vertigo appears to be mostly peripheral vertigo CAT scan of the head did not show any CP angle tumors. Patient at to be evaluated by neurology and they cleared him for discharge patient will be discharged today as his symptoms improved but did not completely resolved patient will be discharged on as-needed basis Zofran and meclizine. If patient continued to have the symptoms as outpatient and may need vestibular rehabilitation. I will leave the dishes and off obtaining an MRI to neurology and if cleared by neurology patient will be discharged today PHYSICAL EXAMINATION: GENERAL: The patient is alert and oriented x3, not in any acute distress. Well developed, well nourished. HEENT: Pupils are round and equally reacting to light. EOMI. No scleral icterus. No conjunctival pallor. Normocephalic, atraumatic. No pharyngeal erythema. No thyromegaly. CARDIOVASCULAR: S1 and S2 present. No murmurs, rubs, or gallops. PULMONARY: Chest is clear to auscultation, no wheezing or crackles. ABDOMEN: Soft, nontender, nondistended, normoactive bowel sounds. No palpable organomegaly. MUSCULOSKELETAL: No joint swelling or deformity. EXTREMITIES: No cyanosis, clubbing, or pedal edema. NEUROLOGICAL: Gross neurological examination did not reveal any focal deficits. SKIN: No rashes. For other chronic medical problems and hospitalization course please refer to my dictation of hpf from yesterday Patient Condition at Discharge: Good Plan - Discharge Summary Discharge Rx Participant: Yes New Discharge Prescriptions: No Action cloNIDine HCL [Catapres] 0.1 mg PO HS Atorvastatin [Lipitor] 10 mg PO HS Pantoprazole Sodium [Protonix] 40 mg PO DAILY Potassium Chloride [Klor-Con 10] 10 meq PO DAILY Lisinopril [Prinivil] 20 mg PO BID Multivitamins, Thera [Multivitamin] 1 tab PO DAILY Fish Oil/Dha/Epa [Fish Oil 1,200 mg Fish Oil] 1 cap PO DAILY Ferrous Sulfate [Feosol] 325 mg PO DAILY Cholecalciferol [Vitamin D3] 1,000 unit PO DAILY Aspirin EC [Ecotrin Low Dose] 81 mg PO DAILY HYDROcodone/APAP 10-325MG [Goldsmith 10-325] 1 tab PO Q6HR PRN PRN Reason: Pain Discharge Medication List Atorvastatin [Lipitor] 10 mg PO HS 11/19/14 [History] Fish Oil/Dha/Epa [Fish Oil 1,200 mg Fish Oil] 1 cap PO DAILY 11/19/14 [History] Lisinopril [Prinivil] 20 mg PO BID 11/19/14 [History] Multivitamins, Thera [Multivitamin] 1 tab PO DAILY 11/19/14 [History] Pantoprazole Sodium [Protonix] 40 mg PO DAILY 11/19/14 [History] Potassium Chloride [Klor-Con 10] 10 meq PO DAILY 11/19/14 [History] cloNIDine HCL [Catapres] 0.1 mg PO HS 11/19/14 [History] Aspirin EC [Ecotrin Low Dose] 81 mg PO DAILY 07/29/17 [History] Cholecalciferol [Vitamin D3] 1,000 unit PO DAILY 07/29/17 [History] Ferrous Sulfate [Feosol] 325 mg PO DAILY 07/29/17 [History] HYDROcodone/APAP 10-325MG [Goldsmith 10-325] 1 tab PO Q6HR PRN 07/29/17 [History] Follow up Appointment(s)/Referral(s): Kaushal Holland PAC [PHYSIC[facility]] - 2 Weeks Tony Whitten DO [Primary Care Provider] - 1-2 days Activity/Diet/Wound Care/Special Instructions: Orthopedic Discharge Instructions: 1. Wound care and infection precautions, no lotions, creams, moisturizers. No soaking, pools, hot tubs. Do not scrub over incision. 2. Toe-touch weightbearing with transferring left lower extremity 3. Ice and elevate when necessary. Do not exceed 20 minutes per hour with ice pack. 4. Utilize compression sleeve until seen at first follow up appointment. 5. Visiting nursing care. 6. Home physical therapy. 7. Pain meds and anticoagulants per prescription. 8. Pain medication has potential to cause constipation. Increase oral fluid and fiber intake. Contact primary care provider if you have not had a bowel movement within 48 hours after discharge. 9. No anti-inflammatory medication until discussed at first post operative visit, this including Motrin, Aleve, Mobic, Diclofenac. 10. Follow up in office at 2 weeks postop with Jamir Holland PA-C 11. Follow up with your primary care doctor 7-10 days after discharge. 12. Contact [facility] with any questions, . Discharge Disposition: TRANSFER TO SNF/ECF
[2017-08-01 16:21] LABS: Basophils % (A) 0 %; Eosinophils # (A) 0.4 k/uL (0-0.7); Eosinophils % (A) 3 %; HCT 24.1 % (34.0-46.0); Lymphocytes # (A) 1.9 k/uL (1.0-4.8); Lymphocytes % (A) 17 %; MCH 28.7 pg (25.0-35.0); MCHC 31.8 g/dL (31.0-37.0); Mean Platelet Volume 7.6; Monocytes # (A) 0.6 k/uL (0-1.0); Monocytes % (A) 5 %; Neutrophils # (A) 8.4 k/uL (1.3-7.7); Neutrophils % (A) 73 %; Platelet Count 181 k/uL (150-450); RBC 2.68 m/uL (3.80-5.40); RDW 13.8 % (11.5-15.5); WBC 11.5 k/uL (3.8-10.6)
[2017-08-01 16:23] LABS: HGB 7.7 gm/dL (11.4-16.0)
[2017-08-01] MEDS: SENNOSIDES-DOCUSATE SODIUM 1 EACH TAB PO SCH (19:53)
[2017-08-01] MEDS: ATORVASTATIN 10 MG TAB PO SCH (19:53)
[2017-08-02 00:41] VITALS: RESP 14
[2017-08-02] MEDS: SODIUM CHLORIDE 0.9% 1,000 ML IV SCH ×3 (03:11→13:31)
[2017-08-02] MEDS: PANTOPRAZOLE 40 MG TABLET PO SCH (07:23)
[2017-08-02 07:29] VITALS: BP 147/67; PULSE 100; TEMP 98.3
[2017-08-02] MEDS: HYDROcodone/APAP 10-325MG 1 EACH TAB PO PRN ×2 (07:29→13:05)
[2017-08-02] MEDS: ASPIRIN 81 MG PO SCH (08:39)
[2017-08-02] MEDS: ENOXAPARIN 30 MG/0.3 ML SYRINGE SQ SCH (08:39)
--- NOTE | 2017-08-02 09:52 | P.PN ---
Subjective Progress Note Date: 08/02/17 Principal diagnosis: Status post closed reduction insertion IT nail for subtrochanteric fracture Patient seen today resting in her hospital bed, she appears comfortable. Pain is better controlled today.. She denies any chest pain or shortness of breath. Objective - Vital Signs Vital signs: Vital Signs Temp 98.3 F 08/02/17 07:14 Pulse 100 08/02/17 07:14 Resp 14 08/02/17 07:14 BP 147/67 08/02/17 07:14 Pulse Ox 98 08/02/17 07:14 Intake & Output 08/01/17 08/02/17 08/02/17 18:59 06:59 18:59 Intake Total 800 875 240 Output Total 250 600 Balance 550 875 -360 Intake: Intake, IV Titration 560 875 Amount Sodium Chloride 0.9% 1, 560 875 000 ml @ 70 mls/hr IV . [id number] [facility] Rx#:[id number] Oral 240 240 Output: Urine 250 600 Uretheral (Escobar) 150 600 Other: Voiding Method Bedpan Bedpan - Exam Left lower extremity: Incision is clean, dry, and intact. [place] are in good position. There is minimal soft tissue swelling and ecchymosis surrounding the medial and lateral aspects of the incision. Calf is soft, no tenderness with palpation. Plantar flexion, dorsiflexion, EHL, FHL are intact. Sensory exam to light touch throughout the extremity is intact, dorsal pedis pulses 2+. - Labs CBC & Chem 7: 08/01/17 15:41 07/29/17 17:41 Labs: Abnormal Lab Results - Last 24 Hours (Table) 08/01/17 Range/Units 15:41 WBC 11.5 H (3.8-10.6) k/uL RBC 2.68 L (3.80-5.40) m/uL Hgb 7.7 L D (11.4-16.0) gm/dL Hct 24.1 L (34.0-46.0) % Neutrophils # 8.4 H (1.3-7.7) k/uL Assessment and Plan Plan: Assessment: 1. Postop day #3 status post closed reduction and insertion IM nail left subtrochanteric hip fracture Plan: Pain control, continue current medication Nonweightbearing left lower extremity GI and DVT prophylaxis, continue subcu medication Daily dressing changes/ice and the hip region Medical recommendations If CBC remains stable, discharge to rehab today Time with Patient: Less than 30
[2017-08-02 10:11] LABS: Basophils % (A) 0 %; Eosinophils # (A) 0.3 k/uL (0-0.7); Eosinophils % (A) 3 %; HCT 24.6 % (34.0-46.0); HGB 8.1 gm/dL (11.4-16.0); Lymphocytes # (A) 1.4 k/uL (1.0-4.8); Lymphocytes % (A) 12 %; MCH 29.8 pg (25.0-35.0); MCHC 32.9 g/dL (31.0-37.0); MCV 90.4 fL (80.0-100.0); Mean Platelet Volume 7.6; Monocytes # (A) 0.4 k/uL (0-1.0); Monocytes % (A) 4 %; Neutrophils # (A) 9.1 k/uL (1.3-7.7); Neutrophils % (A) 80 %; Platelet Count 200 k/uL (150-450); RBC 2.72 m/uL (3.80-5.40); WBC 11.4 k/uL (3.8-10.6)
--- NOTE | 2017-08-02 11:51 | P.DS ---
Providers Date of admission: 07/29/17 18:21 Attending physician: Mnae Mitchell Consults: 07/29/17 18:41 Consult Physician Stat Consulting Provider: Mane Mitchell Consult Reason/Comments: Medical Clearance, AM hip surgery Do you want consulting provider notified?: Yes 07/30/17 01:04 Consult Physician Routine Consulting Provider: Taran Chen Consult Reason/Comments: hip fracture Do you want consulting provider notified?: Already Contacted [facility] Course: Patient was admitted after a left hip fracture underwent the trochanteric nailing. Trochanteric fracture. Patient is comparing of severe pain because of which patient is bit tachycardic patient is bit hypotensive at this can urine as amlodipine cut down her lisinopril. I'll discontinue her lisinopril as she does have perioperative hypotension which is next acute outcome post surgery. Carotid Doppler and the echocardiogram are essentially within normal limits. 08/01/2017 Patient's pain is better controlled today. Patient's tachycardia improved blood pressure is better controlled 08/02/2017 Patient is being discharged to subacute rehabilitation patient blood pressure started going up patient was resumed on lisinopril 20 mg daily. PHYSICAL EXAMINATION: GENERAL: The patient is alert and oriented x3, not in any acute distress. Well developed, well nourished. HEENT: Pupils are round and equally reacting to light. EOMI. No scleral icterus. No conjunctival pallor. Normocephalic, atraumatic. No pharyngeal erythema. No thyromegaly. CARDIOVASCULAR: S1 and S2 present. No murmurs, rubs, or gallops. Patient is bit tachycardic if it to be in sinus rhythm PULMONARY: Chest is clear to auscultation, no wheezing or crackles. ABDOMEN: Soft, nontender, nondistended, normoactive bowel sounds. No palpable organomegaly. MUSCULOSKELETAL: Deferred to orthopedic surgery EXTREMITIES: No cyanosis, clubbing, or pedal edema. NEUROLOGICAL: Gross neurological examination did not reveal any focal deficits. SKIN: No rashes. Assessment and Plan Plan: -Sub trochanteric fracture on the left side, status post nailing of the left hip area -Leukocytosis secondary to fracture reactive in nature without any signs or symptoms of infection -Hypertension management as mentioned above -Tachycardia secondary to pain fairly controlled heart rate now -History of cerebral vascular accident in the past without any significant residual weakness -Active smoking history: Counseling was provided -Left hip fracture Patient Condition at Discharge: Good Plan - Discharge Summary Discharge Rx Participant: Yes New Discharge Prescriptions: New Enoxaparin [Lovenox] 30 mg SQ DAILY #30 syringe Hydrocodone/Acetaminophen [[place] 10-325] 1 - 2 each PO Q6H PRN #56 tab PRN Reason: Pain Polyethylene Glycol 3350 [Miralax] 17 gm PO DAILY PRN #7 powd.pack PRN Reason: Constipation Continue Atorvastatin [Lipitor] 10 mg PO HS Pantoprazole Sodium [Protonix] 40 mg PO DAILY Potassium Chloride [Klor-Con 10] 10 meq PO DAILY Multivitamins, Thera [Multivitamin (formulary)] 1 tab PO DAILY Fish Oil/Dha/Epa [Fish Oil 1,200 mg Fish Oil] 1 cap PO DAILY Ferrous Sulfate [Iron (65 MG Elemental)] 325 mg PO DAILY Cholecalciferol [Vitamin D3] 1,000 unit PO DAILY Aspirin EC [Ecotrin Low Dose] 81 mg PO DAILY Changed Lisinopril [Prinivil] 20 mg PO DAILY #0 Discontinued cloNIDine HCL [Catapres] 0.1 mg PO HS Discharge Medication List Atorvastatin [Lipitor] 10 mg PO HS 11/19/14 [History] Fish Oil/Dha/Epa [Fish Oil 1,200 mg Fish Oil] 1 cap PO DAILY 11/19/14 [History] Multivitamins, Thera [Multivitamin (formulary)] 1 tab PO DAILY 11/19/14 [History ] Pantoprazole Sodium [Protonix] 40 mg PO DAILY 11/19/14 [History] Potassium Chloride [Klor-Con 10] 10 meq PO DAILY 11/19/14 [History] Aspirin EC [Ecotrin Low Dose] 81 mg PO DAILY 07/29/17 [History] Cholecalciferol [Vitamin D3] 1,000 unit PO DAILY 07/29/17 [History] Ferrous Sulfate [Iron (65 MG Elemental)] 325 mg PO DAILY 07/29/17 [History] Enoxaparin [Lovenox] 30 mg SQ DAILY #30 syringe 08/02/17 [Rx] Hydrocodone/Acetaminophen [[place] 10-325] 1 - 2 each PO Q6H PRN #56 tab 06/18/18 [Rx] Lisinopril [Prinivil] 20 mg PO DAILY #0 08/02/17 [Rx] Polyethylene Glycol 3350 [Miralax] 17 gm PO DAILY PRN #7 powd.pack 08/02/17 [Rx] Follow up Appointment(s)/Referral(s): Kaushal Holland PAC [PHYSICIAN TELETYPE MECHANIC] - 08/20/17 1:30 pm Tony Whitten DO [Primary Care Provider] - 1-2 days Activity/Diet/Wound Care/Special Instructions: Orthopedic Discharge Instructions: 1. Wound care and infection precautions, no lotions, creams, moisturizers. No soaking, pools, hot tubs. Do not scrub over incision. 2. Toe-touch weightbearing with transferring left lower extremity 3. Ice and elevate when necessary. Do not exceed 20 minutes per hour with ice pack. 4. Utilize compression sleeve until seen at first follow up appointment. 5. Visiting nursing care. 6. Home physical therapy. 7. Pain meds and anticoagulants per prescription. 8. Pain medication has potential to cause constipation. Increase oral fluid and fiber intake. Contact primary care provider if you have not had a bowel movement within 48 hours after discharge. 9. No anti-inflammatory medication until discussed at first post operative visit, this including Motrin, Aleve, Mobic, Diclofenac. 10. Follow up in office at 2 weeks postop with Jamir Holland PA-C 11. Follow up with your primary care doctor 7-10 days after discharge. 12. Contact [facility] with any questions, . Discharge Disposition: TRANSFER TO SNF/ECF
== END 2017-08-02 14:00 | DRG 482 ==
LOC: EC 17:14 → 3SUR 18:21
PROVIDERS: ADMIT Internal Medicine; ATTEND Internal Medicine
PROC: 0QS706Z Reposition Left Upper Femur with Intramedullary Internal Fixation Device, Open Approach (ICD-10-PCS; principal; 2017-07-30 07:30)
DX: S72.22XA Displaced subtrochanteric fracture of left femur, initial encounter for closed fracture (principal); W19.XXXA Unspecified fall, initial encounter; F17.200 Nicotine dependence, unspecified, uncomplicated; I10 Essential (primary) hypertension; R00.0 Tachycardia, unspecified; Z71.6 Tobacco abuse counseling; Z82.49 Family history of ischemic heart disease and other diseases of the circulatory system; Z79.899 Other long term (current) drug therapy; Z86.73 Personal history of transient ischemic attack (TIA), and cerebral infarction without residual deficits
CPT/HCPCS: 36415; 71045; 73501; 73502; 80053; 85025; 85610; 85730; 93005; 93306; 93880; 96361; 96374; 96375; 99285

== ENCOUNTER → 2018-08-31 | Outpatient (CLI) | payer MEDICARE ==
[~2018-08-31] MED LIST: DENOSUMAB 60 MG/ML 1 ML SYRINGE SQ NR
[2018-08-31 12:01] VITALS: BP 132/68; PULSE 74; RESP 16; TEMP 98.2
== END | disposition home or self-care (01) ==
LOC: PROCWHC3 11:40
PROVIDERS: ATTEND Family Medicine
DX: M81.0 Age-related osteoporosis without current pathological fracture (principal)

== ENCOUNTER → 2018-12-20 | Outpatient (CLI) | payer MEDICARE ==
--- NOTE | 2018-12-22 09:46 | MM ---
Reason for exam: screening (asymptomatic). History: Patient is postmenopausal. Physical Findings: A clinical breast exam by your physician is recommended on an annual basis and results should be correlated with mammographic findings. MG 3D Screening Mammo W/Cad Bilateral CC and MLO view(s) were taken. No prior studies available for comparison. The breast tissue is heterogeneously dense. This may lower the sensitivity of mammography. Stable benign calcifications. There is no discrete abnormality. ASSESSMENT: Benign, BI-RAD 2 RECOMMENDATION: Routine screening mammogram of both breasts in 1 year.
== END | disposition home or self-care (01) ==
LOC: RADMAMWWP 11:29
PROVIDERS: ATTEND Family Medicine
DX: Z12.31 Encounter for screening mammogram for malignant neoplasm of breast (principal)
CPT/HCPCS: 77063; 77067

== ENCOUNTER → 2019-03-06 | Outpatient (CLI) | payer MEDICARE ==
[~2019-03-06] MED LIST changes: -DENOSUMAB 60 MG/ML 1 ML SYRINGE SQ NR; +DENOSUMAB 60 MG/ML 1 ML SYRINGE SQ ONE
[2019-03-06 14:02] VITALS: BP 126/72; PULSE 74; RESP 16; TEMP 97.6
== END | disposition home or self-care (01) ==
LOC: PROCWHC3 13:45
PROVIDERS: ATTEND Family Medicine
DX: M81.0 Age-related osteoporosis without current pathological fracture (principal)
CPT/HCPCS: 96372; J0897

== ENCOUNTER → 2019-09-06 | Outpatient (CLI) | payer MEDICARE ==
[~2019-09-06] MED LIST changes: +DENOSUMAB 60 MG/ML 1 ML SYRINGE SQ NR; -DENOSUMAB 60 MG/ML 1 ML SYRINGE SQ ONE
[2019-09-06 14:51] VITALS: BP 129/72; PULSE 61; RESP 16; TEMP 97.8
== END | disposition home or self-care (01) ==
LOC: PROCWHC3 14:39
PROVIDERS: ATTEND Nurse Practitioner Family
DX: M81.0 Age-related osteoporosis without current pathological fracture (principal)
CPT/HCPCS: 96372; J0897

== ENCOUNTER 2020-01-04 07:58 | Day surgery (SDC) | payer MEDICARE ==
[2020-01-02 14:41] VITALS: BMI 18.8
[~2020-01-04 07:58] MED LIST changes: -DENOSUMAB 60 MG/ML 1 ML SYRINGE SQ NR; +LACTATED RINGERS 1,000 ML IV SCH; +LIDOCAINE 1% (10MG/ML) FOR IV START INTRADERMA PRN
[2020-01-04 08:37] VITALS: TEMP 98.1
[2020-01-04 08:51] LABS: Glucose,Whole Blood 80 mg/dL (75-99)
[2020-01-04] MEDS ORDERED: PROPOFOL 10 MG/ML 20 ML VIAL IV ONE (08:57)
--- NOTE | 2020-01-04 09:00 | P.GSHP ---
History of Present Illness H&P Date: 01/04/20 Chief Complaint: Iron deficiency anemia Is a 16-year-old female with iron deficiency anemia. Patient presents today for colonoscopy for GI bleed. 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 History of Any Multi-Drug Resistant Organisms: None Reported Additional Past Surgical History / Comment(s): COLONOSCOPY, EGD Past Anesthesia/Blood Transfusion Reactions: No Reported Reaction Past Psychological History: No Psychological Hx Reported Smoking Status: Former smoker Past Alcohol Use History: Occasional Additional Past Alcohol Use History / Comment(s): QUIT SMOKING 2018 ., SMOKED 1/2 PPD, STARTED SMOKING AGE 18. Past Drug Use History: None Reported - Past Family History Mother Family Medical History: Congestive Heart Failure (CHF) Medications and Allergies Home Medications Medication Instructions Recorded Confirmed Type Atorvastatin [Lipitor] 10 mg PO HS 11/19/14 01/02/20 History Multivitamins, Thera [Multivitamin 1 tab PO DAILY 11/19/14 01/02/20 History (formulary)] Pantoprazole Sodium [Protonix] 40 mg PO DAILY 11/19/14 01/02/20 History Aspirin EC [Ecotrin Low Dose] 81 mg PO DAILY 07/29/17 01/02/20 History Cholecalciferol [Vitamin D3 (25 1,000 unit PO DAILY 07/29/17 01/02/20 History Mcg = 1000 Iu)] Ferrous Sulfate [Iron (65 MG 325 mg PO DAILY 07/29/17 01/02/20 History Elemental)] lisinopriL [Prinivil] 20 mg PO DAILY #0 08/02/17 01/02/20 Rx Fenofibrate 150 mg PO DAILY 01/02/20 01/02/20 History HYDROcodone/APAP 10-325MG [[place] 1 tab PO BID PRN 01/02/20 01/02/20 History 10-325] amLODIPine [Norvasc] 2.5 mg PO DAILY 01/02/20 01/02/20 History cloNIDine HCL [Catapres] 0.1 mg PO HS 01/02/20 01/02/20 History Allergies Allergy/AdvReac Type Severity Reaction Status Date / Time lactose Allergy Unknown Diarrhea Verified 01/04/20 08:58 Surgical - Exam Vital Signs Temp Pulse Resp BP Pulse Ox 98.1 F 86 16 169/80 96 01/04/20 08:33 01/04/20 08:33 01/04/20 08:33 01/04/20 08:33 01/04/20 08:33 - General well developed, well nourished, no distress - Eyes PERRL - ENT normal pinna - Neck no masses - Respiratory normal expansion - Cardiovascular Rhythm: regular - Abdomen Abdomen: soft, non tender Assessment and Plan Assessment: Large iron deficient, we'll perform colonoscopy
--- NOTE | 2020-01-04 09:11 | P.OP ---
Date of Procedure: 01/04/20 Preoperative Diagnosis: Screening colonoscopy Iron deficiency anemia Postoperative Diagnosis: Diverticulosis Procedure(s) Performed: Colonoscopy Anesthesia: MAC Surgeon: Raf Wooten Pathology: none sent Condition: stable Disposition: PACU Description of Procedure: The patient's placed on the endoscopy table lateral position. She received IV sedation. Digital rectal exam performed which revealed a few external hemorrhage. The possible colonoscope was then placed patient anus passed throughout the entire colon. The ileocecal valve was visualized. The cecum, ascending transverse colon appeared normal. The descending; there is mild diverticular changes. There is known to GI bleed. Scope summer back the rectum this appeared normal. Scope withdrawn. If resume the patient's anemia may be related to diverticular or hemorrhoidal bleeding.
[2020-01-04] MEDS ORDERED: LABETALOL SYRINGE 5 MG/ML IV ONE (09:32)
[2020-01-04 09:51] VITALS: PULSE 72; RESP 18
[2020-01-04 10:12] VITALS: BP 164/68
== END 2020-01-04 10:20 | disposition home or self-care (01) ==
LOC: ORWHC2ENDO 07:58
PROVIDERS: ATTEND Surgery
DX: K57.30 Diverticulosis of large intestine without perforation or abscess without bleeding (principal); E78.5 Hyperlipidemia, unspecified; I10 Essential (primary) hypertension; I69.328 Other speech and language deficits following cerebral infarction; M81.0 Age-related osteoporosis without current pathological fracture; R73.03 Prediabetes; Z87.891 Personal history of nicotine dependence; Z97.2 Presence of dental prosthetic device (complete) (partial); Z82.49 Family history of ischemic heart disease and other diseases of the circulatory system; D50.9 Iron deficiency anemia, unspecified; Z98.890 Other specified postprocedural states; Z91.011 Allergy to milk products; K21.9 Gastro-esophageal reflux disease without esophagitis; Z79.891 Long term (current) use of opiate analgesic; Z79.82 Long term (current) use of aspirin; Z79.899 Other long term (current) drug therapy
CPT/HCPCS: 45378; J2704

== ENCOUNTER → 2020-03-11 | Outpatient (CLI) | payer MEDICARE ==
[~2020-03-11] MED LIST changes: +DENOSUMAB 60 MG/ML 1 ML SYRINGE SQ NR; -LACTATED RINGERS 1,000 ML IV SCH; -LIDOCAINE 1% (10MG/ML) FOR IV START INTRADERMA PRN
[2020-03-11 11:25] VITALS: BP 169/73; PULSE 71; RESP 16; TEMP 97.9
== END | disposition home or self-care (01) ==
LOC: PROCWHC3 11:09
PROVIDERS: ATTEND Nurse Practitioner Family
DX: M81.0 Age-related osteoporosis without current pathological fracture (principal)
CPT/HCPCS: 96372; J0897

== ENCOUNTER → 2020-09-10 | Outpatient (CLI) | payer MEDICARE ==
[2020-09-10 12:00] VITALS: BP 136/72; PULSE 67; RESP 16; TEMP 97.7
== END ==
LOC: PROCWHC3 11:20
PROVIDERS: ATTEND Nurse Practitioner Family
DX: M81.0 Age-related osteoporosis without current pathological fracture (principal); Z91.011 Allergy to milk products; Z87.891 Personal history of nicotine dependence
CPT/HCPCS: 96372; J0897

== ENCOUNTER → 2020-10-23 | Outpatient (CLI) | payer MEDICARE ==
--- NOTE | 2020-10-25 14:31 | MM ---
Reason for exam: screening (asymptomatic). Last mammogram was performed 1 year and 10 months ago. History: Patient is postmenopausal. Physical Findings: A clinical breast exam by your physician is recommended on an annual basis and results should be correlated with mammographic findings. MG 3D Screening Mammo W/Cad Bilateral CC and MLO view(s) were taken. Prior study comparison: December 20, 2018, bilateral MG 3d screening mammo w/cad. The breast tissue is heterogeneously dense. This may lower the sensitivity of mammography. Nodular asymmetric density central left MLO view is more defined. No clear CC view correlate. Further evaluation recommended. ASSESSMENT: Incomplete: need additional imaging evaluation, BI-RAD 0 RECOMMENDATION: Special view mammogram of the left breast. (3D) If lesion persists on supplemental views, image directed ultrasound is recommended. [facility] will attempt to contact patient to return for supplemental views and ultrasound if indicated.
== END | disposition home or self-care (01) ==
LOC: RADMAMWWP 13:13
PROVIDERS: ATTEND Family Medicine
DX: Z12.31 Encounter for screening mammogram for malignant neoplasm of breast (principal); Z78.0 Asymptomatic menopausal state
CPT/HCPCS: 77063; 77067

== ENCOUNTER → 2020-10-31 | Outpatient (CLI) | payer MEDICARE ==
--- NOTE | 2020-10-31 14:42 | MM ---
Reason for exam: additional evaluation requested from abnormal screening. Last mammogram was performed less than 1 month ago. History: Patient is postmenopausal. Physical Findings: Nurse did not find any significant physical abnormalities on exam. MG 3D Work Up W/Cad LT Spot compression MLO and LM view(s) were taken of the left breast. Prior study comparison: October 23, 2020, bilateral MG 3d screening mammo w/cad. December 20, 2018, bilateral MG 3d screening mammo w/cad. The breast tissue is heterogeneously dense. This may lower the sensitivity of mammography. The oval asymmetric density becomes less defined on additional views, short interval follow up recommended. These results were verbally communicated with the patient and result sheet given to the patient on 10/31/20. ASSESSMENT: Probably benign, BI-RAD 3 RECOMMENDATION: Follow-up diagnostic mammogram of the left breast in 6 months.
== END | disposition home or self-care (01) ==
LOC: RADMAMWWP 13:35
PROVIDERS: ATTEND Family Medicine
DX: N64.89 Other specified disorders of breast (principal); Z78.0 Asymptomatic menopausal state
CPT/HCPCS: 77065; G0279; 77061

== ENCOUNTER → 2021-05-28 | Outpatient (CLI) | payer MEDICARE ==
--- NOTE | 2021-05-28 12:17 | MM ---
Reason for exam: follow-up at short interval from prior study. Last mammogram was performed 7 months ago. History: Patient is postmenopausal. Physical Findings: A clinical breast exam by your physician is recommended on an annual basis and results should be correlated with mammographic findings. MG 3D Diag Mammo W/Cad LT CC and MLO view(s) were taken of the left breast. Prior study comparison: October 31, 2020, left breast MG 3d work up w/cad LT. October 23, 2020, bilateral MG 3d screening mammo w/cad. The breast tissue is heterogeneously dense. This may lower the sensitivity of mammography. There is no discrete abnormality including area of concern upper left MLO view. No significant new findings when compared with previous films. Results were given to the patient verbally at the time of the exam. ASSESSMENT: Benign, BI-RAD 2 RECOMMENDATION: Return to routine screening mammogram schedule for both breasts. Back on schedule.
== END | disposition home or self-care (01) ==
LOC: RADMAMWWP 10:51
PROVIDERS: ATTEND Family Medicine
DX: R92.8 Other abnormal and inconclusive findings on diagnostic imaging of breast (principal); Z78.0 Asymptomatic menopausal state
CPT/HCPCS: 77065; G0279; 77061

== ENCOUNTER → 2021-08-07 | Outpatient (CLI) | payer MEDICARE ==
[2021-08-07 11:29] VITALS: BP 164/72; PULSE 76; RESP 16; TEMP 98.2
== END ==
LOC: PROCWHC3 10:59
PROVIDERS: ATTEND Nurse Practitioner Family
DX: M81.0 Age-related osteoporosis without current pathological fracture (principal); Z91.011 Allergy to milk products; Z87.891 Personal history of nicotine dependence
CPT/HCPCS: 96372; J0897

== ENCOUNTER → 2021-12-08 | Outpatient (CLI) | payer MEDICARE ==
--- NOTE | 2021-12-09 08:53 | MM ---
Reason for Exam: Screening (asymptomatic). Last mammogram was performed 1 year(s) and 1 month(s) ago. Patient History: Menarche at age 13. First Full-Term at age 25. Postmenopausal. Risk Values: Sommer 5 year model risk: 1.9%. NCI Lifetime model risk: 5.4%. Prior Study Comparison: 12/20/2018 Bilateral Screening Mammogram, [facility]. 10/23/2020 Bilateral Screening Mammogram, [facility]. 10/31/2020 Left Diagnostic Mammogram, [facility]. 05/28/2021 Left Diagnostic Mammogram, [facility]. Tissue Density: The breast tissue is heterogeneously dense. This may lower the sensitivity of mammography. Findings: Analyzed By CAD. Benign bilateral oil cyst calcifications. There is no suspicious group of microcalcifications or new suspicious mass in either breast. Overall Assessment: Benign, BI-RAD 2 Management: Screening Mammogram of both breasts in 1 year. 1. Patient should continue monthly self breast exams. 2. A clinical breast exam by your physician is recommended on an annual basis. 3. This exam should not preclude additional follow-up of suspicious palpable abnormalities. Electronically signed and approved by: Jun Hayward M.D. Radiologist
== END | disposition home or self-care (01) ==
LOC: RADMAMWWP 12:58
PROVIDERS: ATTEND Family Medicine
DX: Z12.31 Encounter for screening mammogram for malignant neoplasm of breast (principal)
CPT/HCPCS: 77063; 77067

== ENCOUNTER → 2022-05-11 | Outpatient (CLI) | payer MEDICARE ==
[2022-05-11 12:25] VITALS: BP 147/77; PULSE 61; RESP 16; TEMP 97.2
== END ==
LOC: PROCWHC3 12:02
PROVIDERS: ATTEND Nurse Practitioner Family
DX: M81.0 Age-related osteoporosis without current pathological fracture (principal); Z91.011 Allergy to milk products; Z87.891 Personal history of nicotine dependence
CPT/HCPCS: 96372; J0897

== ENCOUNTER → 2022-11-12 | Outpatient (CLI) | payer MEDICARE ==
[~2022-11-12] MED LIST changes: -DENOSUMAB 60 MG/ML 1 ML SYRINGE SQ NR; +DENOSUMAB 60 MG/ML 1 ML SYRINGE SQ ONE
[2022-11-12 12:26] VITALS: BP 122/71; PULSE 60; RESP 16; TEMP 97.5
== END ==
LOC: PROCWHC3 12:02
PROVIDERS: ATTEND Nurse Practitioner Family
DX: M81.0 Age-related osteoporosis without current pathological fracture (principal)
CPT/HCPCS: 96372; J0897

== ENCOUNTER → 2022-12-10 | Outpatient (CLI) | payer MEDICARE ==
--- NOTE | 2022-12-10 11:37 | MM ---
Reason for Exam: Screening (asymptomatic). Last screening mammogram was performed 12 month(s) ago. Patient History: Menarche at age 13. First Full-Term at age 25. Postmenopausal. Risk Values: Sommer 5 year model risk: 2.0%. NCI Lifetime model risk: 5.1%. Prior Study Comparison: 10/31/2020 Left Diagnostic Mammogram, [facility]. 05/28/2021 Left Diagnostic Mammogram, [facility]. 12/08/2021 Bilateral MG 3D screening mammo w/cad, [facility]. Tissue Density: The breast tissue is heterogeneously dense. This may lower the sensitivity of mammography. Findings: Analyzed By CAD. There is no suspicious group of microcalcifications or new suspicious mass. Overall Assessment: Negative, BI-RAD 1 Management: Screening Mammogram of both breasts in [address] [facility] will attempt to contact patient to return for supplemental views and ultrasound if indicated. Patient should continue monthly self-breast exams. A clinical breast exam by your physician is recommended on an annual basis. This exam should not preclude additional follow-up of suspicious palpable abnormalities. Note on Sommer scores and lifetime risk: 1. A Sommer score greater than 3% is considered moderate risk. If this is the case, consider specialist referral to assess eligibility for a risk reducing agent. 2. If overall lifetime risk for the development of breast cancer is 20% or higher, the patient may qualify for future screening with alternating mammogram and breast MRI. Electronically signed and approved by: Abdirizak Carrillo DO
== END | disposition home or self-care (01) ==
LOC: RADMAMWWP 10:57
PROVIDERS: ATTEND Family Medicine
DX: Z12.31 Encounter for screening mammogram for malignant neoplasm of breast (principal); Z78.0 Asymptomatic menopausal state
CPT/HCPCS: 77063; 77067

== ENCOUNTER → 2022-12-11 | Outpatient (CLI) | payer MEDICARE ==
--- NOTE | 2022-12-11 11:23 | CA ---
Lexiscan Nuclear Stress Test Report Name: Simran Perera Exam Date: 12/11/2022 10:21 Exam Location: [place] Stress Ht (in): 60 Wt (lb): 102 BSA: 1.40 Ordering Phys: Sophie Villanueva DO Referring Phys: Seema Haro Technologist: JOAQUÍN,, Age: 72 Gender: F : 1950 Procedure CPT: Indications: I25.10 HEART DISEASE R94.31 ABN EKG ICD-10 Codes: Patient History: Abnormal EKG Medications: Meds past 24 hrs: Pretest Chest Pain: STRESS TEST Lexiscan Protocol Exercise Duration (min:sec): 01:[address] Depressions (mm): Angina Score: Polk Score: Resting HR (bpm): 68 Peak HR (bpm): 107 Resting BP (mmHg): 181 / 74 Peak BP (mmHg): 155 / 65 MPHR: 148 Target HR: 126 % MPHR: 72 METS: 1.0 Total Dose: Peak Dose: Atropine: Double Product: 90700 BP Response: Stress Termination: INFUSION COMPLETE Stress Symptoms: NO SYMPTOMS Stress Summary: ECG ANALYSIS Resting ECG: Stress ECG: CONCLUSIONS RESTING EKG: [Normal sinus rhythm, normal EKG] , Heart rate 69 BPM Patient recieved IV infusion of Lexiscan 0.4mg and at peak infusion STRESS EKG showed: [No significant ST-T wave changes diagnostic for ischemia by ST segment analysis] ARRYTHMIAS: [No ectopic rhythms or sustained arrythmias] CONCLUSION: 1. Normal hemodynamic and heart response to Lexiscan infusion. 2. Normal resting EKG 3. Non-ischemic EKG response to lexiscan infusion 4. Nuclear perfusion imaging is reported separately by the radiology team. Please refer to that report for complete interpretation of this study. Dr Fernando Gutierrez (Electronically Signed) Final Date: 11 December 2022 11:22
--- NOTE | 2022-12-11 11:25 | CA ---
Transthoracic Echo Report Name: Simran Perera Age: 72 Gender: F : 1950 Exam Date: 12/11/2022 09:08 Exam Location: [place] Echo Ht (in): 61 Wt (lb): 102 Ordering Physician: Sophie Villanueva DO Attending/Referring Phys: Seema Haro [facility] Oven Operator Automatic Diana Silvestre [facility] Procedure CPT: Indications: I25.10 HEART DISEASE R94.31 ABN EKG Cardiac Hx: Technical Quality: Fair Contrast 1: Total Dose (mL): Contrast 2: Total Dose (mL): MEASUREMENTS (Male / Female) Normal Values 2D ECHO LV Diastolic Diameter PLAX 3.8 cm 4.2 - 5.9 / 3.9 - 5.3 cm LV Systolic Diameter PLAX 2.2 cm IVS Diastolic Thickness 1.2 cm 0.6 - 1.0 / 0.6 - 0.9 cm LVPW Diastolic Thickness 1.1 cm 0.6 - 1.0 / 0.6 - 0.9 cm LV Relative Wall Thickness 0.6 LVOT Diameter 2.0 cm M-MODE Aortic Root Diameter MM 2.7 cm LA Systolic Diameter MM 3.1 cm LA Ao Ratio MM 1.1 AV Cusp Separation MM 1.6 cm DOPPLER AV Peak Velocity 125.8 cm/s AV Peak Gradient 6.3 mmHg AV Mean Velocity 88.8 cm/s AV Mean Gradient 3.5 mmHg AV Velocity Time Integral 32.0 cm LVOT Peak Velocity 107.2 cm/s LVOT Peak Gradient 4.6 mmHg LVOT Velocity Time Integral 24.2 cm LVOT Stroke Volume 74.1 cm??? LVOT Stroke Volume Index 52.2 ml/m??? LVOT Cardiac Index 3156.5 cm???/min???m??? AV Area Cont Eq vti 2.3 cm??? AV Area Cont Eq pk 2.6 cm??? MV Peak Velocity 111.0 cm/s MV Peak Gradient 4.9 mmHg MV Mean Velocity 63.5 cm/s MV Mean Gradient 2.0 mmHg MV Velocity Time Integral 33.7 cm MR Peak Velocity 646.1 cm/s MR Peak Gradient 167.0 mmHg Mitral E Point Velocity 83.9 cm/s Mitral A Point Velocity 107.6 cm/s Mitral E to A Ratio 0.8 MV Deceleration Time 201.7 ms LV E' Lateral Velocity 8.8 cm/s Mitral E to LV E' Lateral Ratio 9.5 LV E' Septal Velocity 8.3 cm/s Mitral E to LV E' Septal Ratio 10.1 TR Peak Velocity 243.1 cm/s TR Peak Gradient 23.6 mmHg Right Atrial Pressure 3.0 mmHg Pulmonary Artery Systolic Pressu 26.6 mmHg Right Ventricular Systolic Press 26.6 mmHg FINDINGS Left Ventricle Mildly increased left ventricular wall thickness. Small left ventricular cavity. Normal left ventricular systolic function with no obvious regional wall motion abnormalities. Left ventricular ejection fraction is estimated at 60- 65%. Right Ventricle Normal right ventricular size. Right Atrium Normal right atrial size. Left Atrium Moderate left atrial dilatation. Mitral Valve Structurally normal mitral valve. Mild mitral regurgitation. Aortic Valve Aortic valve not well visualized. No aortic valve stenosis or regurgitation. Tricuspid Valve Structurally normal tricuspid valve. Mild tricuspid regurgitation. Pulmonic Valve Pulmonic valve not well visualized. Pericardium No pericardial effusion. Echo free space anterior to the right ventricle likely represents a fat pad. Aorta Normal size aortic root. CONCLUSIONS Left ventricular ejection fraction is estimated at 60-65%. No obvious regional wall motion abnormalities. Mildly increased left ventricular wall thickness. Mild mitral regurgitation. No pericardial effusion. Previewed by: Dr Fernando Gutierrez (Electronically Signed) Final Date: 11 December 2022 11:24
== END | disposition home or self-care (01) ==
LOC: RADNMMAIN 08:02
PROVIDERS: ATTEND Family Medicine
DX: I34.0 Nonrheumatic mitral (valve) insufficiency (principal); I25.10 Atherosclerotic heart disease of native coronary artery without angina pectoris; R94.31 Abnormal electrocardiogram [ECG] [EKG]
CPT/HCPCS: 93017; 93306; 78452; A9500

== ENCOUNTER → 2023-12-13 | Outpatient (CLI) | payer MEDICARE ==
--- NOTE | 2023-12-13 14:38 | MM ---
Reason for Exam: Screening (asymptomatic). Last screening mammogram was performed 12 month(s) ago. Patient History: Menarche at age 13. First Full-Term at age 25. Postmenopausal. Risk Values: Sommer 5 year model risk: 2.0%. NCI Lifetime model risk: 4.8%. Prior Study Comparison: 05/28/2021 Left Diagnostic Mammogram, [facility]. 12/08/2021 Bilateral MG 3D screening mammo w/cad, [facility]. 12/10/2022 Bilateral MG 3D screening mammo w/cad, [facility]. Tissue Density: The breasts are heterogeneously dense, which may obscure small masses. Findings: Analyzed By CAD. Right breast: There is no suspicious group of microcalcifications or new suspicious mass. Benign-appearing calcifications right breast. Left breast: There is no suspicious group of microcalcifications or new suspicious mass. Benign-appearing calcifications left breast. Overall Assessment: Benign, BI-RAD 2 Management: Screening Mammogram of both breasts in [address] [facility] will attempt to contact patient to return for supplemental views and ultrasound if indicated. Patient should continue monthly self-breast exams. A clinical breast exam by your physician is recommended on an annual basis. This exam should not preclude additional follow-up of suspicious palpable abnormalities. Note on Sommer scores and lifetime risk: 1. A Sommer score greater than 3% is considered moderate risk. If this is the case, consider specialist referral to assess eligibility for a risk reducing agent. 2. If overall lifetime risk for the development of breast cancer is 20% or higher, the patient may qualify for future screening with alternating mammogram and breast MRI. [facility], , 12/13/2023 2:34 PM. Electronically signed and approved by: Abdirizak Carrillo DO
== END | disposition home or self-care (01) ==
LOC: RADMAMWWP 11:28
PROVIDERS: ATTEND Family Medicine
CPT/HCPCS: 77063; 77067